=== PATIENT | female | born 1960 | race Caucasian/White ===

== ENCOUNTER 2017-04-13 08:05 | Day surgery (SDC) | payer BC, OTHER ==
[2017-04-06 15:46] VITALS: BMI 35.7
--- NOTE | 2017-04-12 08:42 | HP ---
[facility] - Chief Complaint Chief Complaint: right shoulder pain - Past Medical History Allergies/Adverse Reactions: Allergies Allergy/AdvReac Type Severity Reaction Status Date / Time erythromycin base AdvReac Verified 04/06/17 15:33 - Current Medications Current Medications: Home Medications Medication Instructions Recorded Amlodipine Besylate [Norvasc -] 10 mg PO DAILY 04/06/17 Aspirin [Lo-Dose Aspirin EC] 81 mg PO DAILY 04/06/17 Atorvastatin Ca [Lipitor] 40 mg PO DAILY 04/06/17 Biotin 10,000 mcg PO DAILY 04/06/17 Calcium Carbonate/Vitamin D3 1 each PO DAILY 04/06/17 [Calcium 500-Vit D3 200 Tablet] Insulin Glargine/Lixisenatide 60 units SQ DAILY 04/06/17 [Soliqua 100 Unit-33 Mcg/ml Pen] Lansoprazole [Prevacid] 30 mg PO DAILY 04/06/17 Saxagliptin HCl/Metformin HCl 2 tab PO DAILY 04/06/17 [Kombiglyze Xr 5-500 mg Tablet] [facility]ellite Physical Exam - Physical Examination General Appearance: Well Nourished, Well Developed, Alert & Oriented x3 ENT: Clear Lung: Normal air movement Heart: Regular rate & rhythm Extremities: Other (right shoulder- + ttp, decr rom, + empty can, + neer, + jewell, nvi MRI- + rct) Neurological: Intact, Alert, Oriented [facility]ellite Impression/Plan - Impression/Plan Impression: right shoulder RCT Operative Procedure: right shoulder arthroscopy with RCR, SAD Date to be Performed: 04/13/17
[2017-04-13] MEDS ORDERED: PROPOFOL 20 ML ONE ×2 (08:51)
[2017-04-13] MEDS ORDERED: ROPIVACAINE HCL 0.5% 30ML VIAL ONE (09:08)
[2017-04-13] MEDS ORDERED: DEXAMETHASONE SOD PHOSPHATE/PF 10 MG/ML SDV ONE (09:08)
[2017-04-13] MEDS ORDERED: MIDAZOLAM HCL 2 MG/2 ML SINGLE DOSE VIAL ONE ×2 (09:08→09:45)
[2017-04-13] MEDS ORDERED: ceFAZolin SODIUM 1 GM VIAL ONE (09:59)
--- NOTE | 2017-04-13 11:06 | OP ---
Operative Note - Note: Operative Date: 04/13/17 ([email or web address]) Pre-Operative Diagnosis: right shoulder rct Operation: right shoulder arthroscopy with RCR, SAD Implants: arthrex speedbridge Post-Operative Diagnosis: Same as Pre-op Surgeon: David Delcid Drafter Refrigeration: Basil Dee Anesthesia: Local, MAC Specimens Removed: shavings Estimated Blood Loss (mls): 5 Operative Report Dictated: Yes
--- NOTE | 2017-04-13 11:26 | SPEC ---
DATE OF OPERATION: 04/13/2017 PREOPERATIVE DIAGNOSIS: Right rotator cuff tear. POSTOPERATIVE DIAGNOSIS: Right rotator cuff tear. PROCEDURE: Arthroscopy right shoulder with subacromial debridement of bone and soft tissue and arthroscopic rotator cuff repair with SpeedBridge fixation. SURGICAL ATTENDING: David Delcid MD END FINDER FORMING DEPARTMENT: CHRIS Almazan ANESTHESIA: Regional and general. CLOSURE: A SpeedBridge for rotator cuff and 3-0 nylon for skin. ESTIMATED BLOOD LOSS: Negligible. COMPLICATIONS: None. CONDITION: To the recovery room in stable condition. DESCRIPTION OF PROCEDURE: The patient was taken to the operating room on April 13, 2017. General and regional anesthesia was administered by the anesthesiologist. IV Kefzol was administered prophylactically prior to the case. The patient was placed in the beach chair position with all prominences well padded. The right shoulder area was prepped and draped in the usual sterile fashion. First, a diagnostic arthroscopy of the glenohumeral joint was made. Posterior portal was made 2 fingerbreadths below the acromion with a 15 blade followed by a blunt trocar. Circumferential exam of the glenohumeral joint revealed the following: Intact labrum circumferentially, intact glenoid and humeral head articular cartilage, intact biceps and biceps anchor, intact subscapularis through its insertion. Looking superiorly, there was a large rotator cuff tear. The fluid was drained from the shoulder, and the trocar was removed. The posterior trocar was redirected in the subacromial space. An accessory lateral and anterior portal were made with a 15 blade followed by a blunt trocar. The lateral portal was used as the working portal. Through this portal, an ArthroCare device was applied. This was used to debride the soft tissue in the subacromial aspect. The coracoacromial ligament was identified and detached off the anterior acromion and was visualized to drop inferiorly and was further debrided. The bone on the undersurface of the acromion was burred to the appropriate level giving appropriate height for the rotator cuff beneath. Looking inferiorly, there was a large rotator cuff tear, soft tissue encasing the rotator cuff, and the deltoid recess was debrided using ArthroCare device and the shaver. The bed on the greater tuberosity was burred to give a good bed for the double row SpeedBridge repair. A grasper was used to ensure that the rotator cuff was able to be reduced sufficiently to the greater tuberosity. The rotator cuff was freed on the bursal and the articular surface to allow more excursion of the tendon. Two anchors preloaded with FiberTape suture were placed on the articular margin, one more anteriorly, one more posteriorly. They were shuttled through the anterior portal with a grasper. Each limb was individually passed through the rotator cuff, two anteriorly and two posteriorly. One anterior limb and one posterior limb was delivered through the lateral portal. They were placed through the eyelet hole of the more lateral anchor, which was then malleted into place much more laterally, reducing the rotator cuff to the greater tuberosity. The swivel was then screwed into place. The sutures were then cut flush with the bone. Next, one anterior and one posterior limb that was remaining were shuttled from the anterior to the lateral portal. The sutures were placed through the eyelet hole of the anterior anchor, which was malleted on the anterior aspect of the greater tuberosity. After tensioning it, it was deployed the entire way and then screwed home giving an excellent reduction to the anterior portion of the rotator cuff. After the sutures were cut, the rotator cuff was probed and found to have good stability with excellent matting down of the rotator cuff to the greater tuberosity. The shoulder was taken through the range of motion and found to have good clearance on the undersurface of the acromion with good, solid repair. The shoulder was drained of the fluid. The portals were closed with 3-0 nylon suture. A sterile pressure dressing followed by a shoulder immobilizer was applied. The patient was awoken from anesthesia and transferred to recovery room in stable condition. No complications. Estimated blood loss negligible. Awilda [id number]
[2017-04-13 11:46] VITALS: TEMP 98.6
[2017-04-13 13:17] VITALS: BP 122/66; PULSE 94
== END 2017-04-13 13:10 | disposition home or self-care (01) ==
LOC: FASU 08:05
PROVIDERS: ATTEND Orthopaedic Surgery
PROC: 0LB14ZZ Excision of Right Shoulder Tendon, Percutaneous Endoscopic Approach (ICD-10-PCS; principal; 2017-04-13 10:14)
PROC: 0RNJ4ZZ Release Right Shoulder Joint, Percutaneous Endoscopic Approach (ICD-10-PCS; 2017-04-13 10:14)
DX: M75.101 Unspecified rotator cuff tear or rupture of right shoulder, not specified as traumatic (principal)
CPT/HCPCS: 94760